=== PATIENT | male | born 1980 | race Caucasian/White ===

== ENCOUNTER 2020-07-17 10:51 | Outpatient (CLI) | payer OTHER ==
--- NOTE | 2020-07-17 11:17 | RAD ---
XR Ankle Lt 2 View History: Disability exam Comparison: None. 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 Medial and lateral plate-screw fixation the distal tibia. The fibula is poorly evaluated without an oblique view. 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 Fibular evaluation is degroot ited. Repeat radiograph with oblique view recommended.
== END 2020-07-17 10:52 | disposition home or self-care (01) ==
LOC: BICRAD 10:51
PROVIDERS: ATTEND Internal Medicine
DX: Z02.71 Encounter for disability determination (principal); M19.072 Primary osteoarthritis, left ankle and foot

== ENCOUNTER 2022-01-25 00:42 | Emergency (ER) | payer OTHER ==
[2022-01-25] MEDS ORDERED: Ketorolac Tromethamine 30 MG/ML VIAL ONE (01:19)
== END 2022-01-25 03:24 | disposition home or self-care (01) ==
LOC: ERS 00:42
DX: M79.672 Pain in left foot (principal)
CPT/HCPCS: 96372; J1885

== ENCOUNTER 2025-07-04 12:02 | Outpatient (CLI) | payer OTHER | END 2025-07-04 12:03 | disposition home or self-care (01) | LOC: BICMRI 12:02 | PROVIDERS: ATTEND Family Medicine | DX: L03.119 Cellulitis of unspecified part of limb (principal); L02.619 Cutaneous abscess of unspecified foot; M19.071 Primary osteoarthritis, right ankle and foot ==